=== PATIENT | male | born 1965 | race Caucasian/White ===

== ENCOUNTER 2024-11-21 03:51 | Emergency (ER) | payer BC ==
[2024-11-21] MEDS: Ketorolac 60 MG/2 ML SDV IM ONE (04:17)
[2024-11-21] MEDS: Orphenadrine 60 MG/2 ML Inj IM ONE (04:24)
== END 2024-11-21 04:34 | disposition home or self-care (01) ==
LOC: MW.ED 03:51
DX: M62.838 Other muscle spasm (principal); Z79.899 Other long term (current) drug therapy
CPT/HCPCS: 96372; 99283; J1885; J2360

== ENCOUNTER 2024-11-22 10:58 | Emergency (ER) | payer BC | END 2024-11-22 13:08 | disposition home or self-care (01) | LOC: MW.ED 10:58 | DX: M54.12 Radiculopathy, cervical region (principal) | CPT/HCPCS: 99283 ==